=== PATIENT | male | born 2000 | race Caucasian/White ===

== ENCOUNTER 2021-07-11 20:01 | Emergency (ER) | payer BC, MEDICAID, SELFPAY ==
[2021-07-11 20:14] VITALS: BP 131/79; PULSE 72; RESP 18; TEMP 36.9; O2SAT 98; BMI 21.5
--- NOTE | 2021-07-11 20:23 | ED_ITS ---
HPI - Extremity Problem General: Chief complaint: Extremity Injury, Upper Stated complaint: Left Hand Injury Time Seen by Provider: 07/11/21 20:23 History of Present Illness: 21-year-old male comes in today with injury to the left hand. Patient reports being angry yesterday and hitting the wall and accidentally hit the stud in the wall causing him to hurt his left hand. Patient is left-handed. Patient does have some swelling and bruising to the left hand. Review of Systems General: Reports: 10 or more systems reviewed and unremarkable except in HPI and below Musc: Reports: extremity pain (Left hand injury with swelling and bruising) Physical Exam Const: COMMON NORMALS: alert Neck/C-Spine: COMMON NORMALS: full ROM Resp: COMMON NORMALS: normal respiratory effort and clear to auscultation bilaterally AUSCULTATION: clear to auscultation bilaterally Cardio: COMMON NORMALS: regular rate and regular rhythm RATE: regular rate RHYTHM: regular rhythm Extremity: LEFT UPPER EXTREMITY: Yes hand & digits (Swelling and bruising to the dorsal left hand) Left hand and digits: Yes inspection, Yes palpation, Yes ROM, Yes neurovascular exam and Yes tendon exam Neuro: SENSORIUM/ORIENTATION: Yes alert Psych: COMMON NORMALS: cooperative Skin: COMMON NORMALS: no wounds Course Vital Signs: Vital signs: Vital Signs Temperature 98.4 F 07/11/21 20:14 Pulse Rate 72 07/11/21 20:14 Respiratory Rate 18 07/11/21 20:14 Blood Pressure 131/79 07/11/21 20:14 Pulse Oximetry 98 07/11/21 20:14 MDM - Extremity (Nontraumatic) Medical Decision Making 21-year-old male patient comes in with injury to the left hand. Patient reports striking a wall. On exam patient has bruising and tenderness to the dorsal left hand. Tenderness is around the MCP joint of the second digit. Differential diagnosis includes fracture, sprain, contusion. X-ray notes a nondisplaced fracture of the neck of the distal metacarpal. Reviewed exam with patient with recommendations for treatment and follow-up with orthopedics. Patient reported understanding and agreed to plan. Discharge Plan Discharge Patient Disposition: Home Clinical Impression: Fracture, metacarpal, neck Condition: Stable Discharge Orders: Discharge ED (Routine); Ordered 07/11/21 Ordered By: Alan Blanton Discharge Diet: Usual diet Discharge Activity: Limit activity as instructed Patient Instructions: Splint Care (ED) Activity Restrictions/Additional Instructions: Limit use of left hand. Keep splint clean and dry. Follow-up with orthopedic physician for further evaluation and treatment. Return to ER for new concerns. Coding Level of Care Code ED Dining Service Supervisor for Mariah Zarco Exam Detailed
--- NOTE | 2021-07-11 20:24 | XRR_ITS ---
PROCEDURE INFORMATION: Exam: XR Left Hand Exam date and time: 07/11/2021 8:24 PM Age: 21 years old Clinical indication: Injury or trauma; Other: Punched a wall; Blunt trauma (contusions or hematomas); Hand; Left TECHNIQUE: Imaging protocol: XR Left hand. Views: 3 or more views. COMPARISON: No relevant prior studies available. FINDINGS: Bones/joints: 2nd metacarpal distal head comminuted mildly displaced fracture with articular involvement at the metacarpophalangeal joint. Soft tissues: Normal. XR/XR hand LT min 3V* [id number] IMPRESSION: 2nd metacarpal distal head comminuted mildly displaced fracture with articular involvement at the metacarpophalangeal joint.
--- NOTE | 2021-07-13 10:26 | DCPLANNER ---
Addendum entered by Pattie Zamora 08/06/21 08:16: Patient had a follow up appointment scheduled for 07.14.21 with ANAM Sparrow at ortho - patient did attend appointment. Addendum entered by Pattie Zamora 07/14/21 06:58: Patient has a follow up appointment scheduled for Wednesday, July 14, 2021 at 10:30 with ANAM Sparrow at ortho. Clinic will call patient with appointment information. Original Note: digital account manager had message to schedule a follow up appointment for patient with ortho. digital account manager called the ortho clinic, spoke with Aleisha, gave clinic patients information. digital account manager was told that patients information would be printed and reviewed. Clinic will call patient with appointment information.
== END 2021-07-11 21:29 | disposition home or self-care (01) ==
PROVIDERS: Emergency Provider Nurse Practitioner Family
DX: S69.92XA Unspecified injury of left wrist, hand and finger(s), initial encounter (principal); S62.391A Other fracture of second metacarpal bone, left hand, initial encounter for closed fracture; W22.09XA Striking against other stationary object, initial encounter
CPT/HCPCS: 29125; 73130; 99282

== ENCOUNTER → 2021-07-14 11:17 | Outpatient (BNVA) | payer BC, MEDICAID, SELFPAY | PROVIDERS: Referring Provider Nurse Practitioner Family; Visit Provider Physician Assistant | DX: S62.339A Displaced fracture of neck of unspecified metacarpal bone, initial encounter for closed fracture (principal); X58.XXXA Exposure to other specified factors, initial encounter | CPT/HCPCS: 73130 ==

== ENCOUNTER 2021-07-14 15:53 | Outpatient (CLI) | payer BC, MEDICAID, SELFPAY | END 2021-07-14 15:54 | disposition home or self-care (01) | LOC: SPT 15:55 | PROVIDERS: Visit Provider Physician Assistant | DX: Z46.89 Encounter for fitting and adjustment of other specified devices (principal); S62.331D Displaced fracture of neck of second metacarpal bone, left hand, subsequent encounter for fracture with routine healing; X58.XXXD Exposure to other specified factors, subsequent encounter | CPT/HCPCS: 97760; L3807 ==